=== PATIENT | female | born 1970 | race Caucasian/White ===

== ENCOUNTER → 2020-01-10 13:32 | Outpatient (BNVA) | payer OTHER, SELFPAY | PROVIDERS: PCP Internal Medicine; Referring Provider Internal Medicine; Visit Provider Physician Assistant | DX: R19.7 Diarrhea, unspecified (principal) | CPT/HCPCS: 99202 ==

== ENCOUNTER 2020-01-11 15:13 | Outpatient (REF) | payer OTHER, SELFPAY ==
[2020-01-11 16:02] LABS: MANUAL DIFF FLAG NO
[2020-01-11 16:05] LABS: Basophils Absolute Auto 0.1 X10*3/uL (0.0-0.2); Eosinophils Absolute Auto 0.3 X10*3/uL (0.0-0.4); Eosinophils Percent Auto 5.4 % (0-4); Hematocrit 34.5 % (37-47); Hemoglobin 11.4 g/dl (12.0-16.0); Imm Gran Abs Auto 0.06 X10*3/uL (0.00-0.03); Imm Gran Pct Auto 1.2 % (0.0-0.4); Lymphocytes Absolute Auto 1.7 X10*3/uL (1.2-4.9); Lymphocytes Percent Auto 32.8 % (20-40); Mean Corpuscular Hemoglobin 28.8 pg (27.0-33.0); Mean Corpuscular Volume 87.1 fL (80-98); Mean Platelet Volume 9.3 fL (9.4-12.3); Monocytes Absolute Auto 0.6 X10*3/uL (0.1-1.2); Monocytes Percent Auto 11.9 % (2-11); Neutrophils Absolute Auto 2.4 X10*3/uL (2.0-8.3); Neutrophils Percent Auto 47.7 % (45-73); Platelet Count 333 X10*3/uL (160-400); Red Blood Count 3.96 X10*6/uL (4.20-5.50); Red Cell Distribution Width 12.8 % (11.0-16.0)
[2020-01-11 16:29] LABS: Alanine Aminotransferase 25 U/L (0-31); Albumin Level 3.8 g/dL (3.5-5.0); Alkaline Phosphatase 69 U/L (39-117); Anion Gap 12 (12-20); Anion Gap 14 (12-20); Aspartate Amino Transferase 29 U/L (5-31); Bilirubin Total 0.2 mg/dL (0.0-1.0); Blood Urea Nitrogen 21 mg/dL (9-16); Calcium 9.1 mg/dL (8.4-10.2); Calcium 9.2 mg/dL (8.4-10.2); Carbon Dioxide 24 mmol/L (22-29); Carbon Dioxide 26 mmol/L (22-29); Chloride 104 mmol/L (96-108); Cholesterol 159 mg/dL; Estimated Glomerular Filt Rate 46; Estimated Glomerular Filt Rate 47; Glucose Fasting 81 mg/dL (60-99); Glucose Random 81 mg/dL (60-115); HDL Cholesterol 35 mg/dL; LDL Cholesterol Calculated 83 mg/dl; Potassium 4.9 mmol/l (3.3-5.1); Sodium 137 mmol/L (135-145); Total Protein 7.7 g/dL (6.5-8.0); Triglycerides 207 mg/dL
[2020-01-11 16:40] LABS: Erythrocyte Sedimentation Rate 37 MM/HR (0-20)
[2020-01-11 16:50] LABS: Thyroid Stimulating Hormone 3.78 uIU/mL (0.32-4.0)
[2020-01-12 17:06] LABS: CRP High Sensitivity 5.9 mg/L
[2020-01-12 19:01] LABS: Transglutaminase IgA 1 U/mL
[2020-01-13 10:38] LABS: CDIFF Ag Negative (Negative); CDIFF Internal ctrl Dots and bkg OK (V); CDiff Toxin Negative (Negative)
[2020-01-17 15:56] LABS: Endomysial IgA Antibody Negative (Negative)
[2020-01-25 14:00] LABS: Calprotectin, Fecal 87
== END 2020-01-11 15:14 | disposition home or self-care (01) ==
LOC: HO.LAB 15:13
PROVIDERS: Nurse Practitioner Family; PCP Internal Medicine; Visit Provider Physician Assistant
DX: R10.11 Right upper quadrant pain (principal); K59.09 Other constipation; R19.7 Diarrhea, unspecified
CPT/HCPCS: 36415; 80048; 80053; 80061; 83516; 84443; 85025; 85652; 86141; 86255; 86256

== ENCOUNTER 2020-01-12 17:28 | Outpatient (REF) | payer OTHER, SELFPAY ==
[2020-01-12 18:35] LABS: Leukocytes Stool Qualitative NEGATIVE (NEGATIVE)
[2020-01-19 13:27] LABS: Calprotectin, Fecal 97 mcg/g
== END 2020-01-12 17:29 | disposition home or self-care (01) ==
LOC: HO.LNP 17:28
PROVIDERS: Visit Provider Physician Assistant
DX: R19.7 Diarrhea, unspecified (principal)
CPT/HCPCS: 83993; 87015; 87045; 87046; 87207; 87324; 87329; 87449; 89055

== ENCOUNTER → 2020-03-05 11:39 | Outpatient (BNVA) | payer OTHER, SELFPAY | PROVIDERS: PCP Internal Medicine; Visit Provider Physician Assistant | DX: Z13.89 Encounter for screening for other disorder (principal) | CPT/HCPCS: 99212 ==

== ENCOUNTER 2020-03-27 13:12 | Day surgery (SDC) | payer OTHER, SELFPAY ==
[2020-03-21 15:25] VITALS: BMI 37.9
--- NOTE | 2020-03-26 09:38 | HO.ANESPROP2 ---
Documented by User: Helen Blue 03/26/20 09:43 HPI - Anesthesia Eval Consult details Narrative: 49yo F for Upper Endoscopy and Colonoscopy IVDA - none for 7 months per h&p PMFSH Past Medical History Medical History Anxiety with depression Arthritis Cellulitis GERD (gastroesophageal reflux disease) Hepatitis C History of heroin use Hospital discharge follow-up Neuropathy Smoker Family History Family History Father Cirrhosis Heart problem Mother Cancer Surgical History Surgical History Absence of gallbladder History of ankle surgery History of section Social History Social History (Updated 03/27/20 @ 14:34 by Jayda Trinh) Alcohol intake: former Smoking Status: Current every day smoker Smoked in Last 30 Days: Yes Use of substances other than those prescribed or required for medical reasons: Yes Substance Use Type: Heroin Advance Directives: No Advance Directives Information Provided: No Advance Directives on File: No Current occupational status: disabled Meds Allergies Allergy/AdvReac Type Severity Reaction Status Date / Time No Known Allergies Allergy Verified 03/21/20 15:24 Home Medications Medication Instructions Recorded Confirmed Type dicyclomine 10 mg capsule 10 mg PO QID 12/06/19 03/21/20 History diphenoxylate-atropine 2.5 1 tab PO TID 12/06/19 03/21/20 History mg-0.025 mg tablet hydroxyzine HCl 25 mg tablet 25 mg PO BEDTIME 12/06/19 03/21/20 History aripiprazole 15 mg tablet 15 mg PO DAILY 03/14/20 03/21/20 History prazosin 2 mg capsule 2 mg PO BEDTIME 03/14/20 03/21/20 History methadone 03/27/20 History methadone 40 mg PO DAILY 03/27/20 03/27/20 History Exam Exam Date and Time: March 26, 2020 0938 Height,Weight and Vital Signs: Height 5 ft 3 in Weight 97.069 kg Pertinent Lab Results Pertinent Lab Results: Laboratory Tests 01/11/20 01/11/20 15:40 15:40 WBC 5.0 Hgb 11.4 L Hct 34.5 L Plt Count 333 Sodium 137 Potassium 4.9 Chloride 104 Carbon Dioxide 26 BUN 21 H Creatinine 1.21 Assessment and Plan Assessment Anesthesia Assessment: Chart Reviewed Documented by User: Jayda Trinh 03/27/20 14:37 PMFSH Past Medical History Medical History Anxiety with depression Arthritis Cellulitis GERD (gastroesophageal reflux disease) Hepatitis C History of heroin use Hospital discharge follow-up Neuropathy Smoker Family History Family History Father Cirrhosis Heart problem Mother Cancer Family history of problems with anesthesia: No Surgical History Surgical History Absence of gallbladder History of ankle surgery History of section History of Problems with Anesthesia: No Social History Social History (Updated 03/27/20 @ 14:34 by Jayda Trinh) Alcohol intake: former Smoking Status: Current every day smoker Smoked in Last 30 Days: Yes Use of substances other than those prescribed or required for medical reasons: Yes Substance Use Type: Heroin Advance Directives: No Advance Directives Information Provided: No Advance Directives on File: No Current occupational status: disabled Meds Allergies Allergy/AdvReac Type Severity Reaction Status Date / Time No Known Allergies Allergy Verified 03/21/20 15:24 Home Medications Medication Instructions Recorded Confirmed Type dicyclomine 10 mg capsule 10 mg PO QID 12/06/19 03/21/20 History diphenoxylate-atropine 2.5 1 tab PO TID 12/06/19 03/21/20 History mg-0.025 mg tablet hydroxyzine HCl 25 mg tablet 25 mg PO BEDTIME 12/06/19 03/21/20 History aripiprazole 15 mg tablet 15 mg PO DAILY 03/14/20 03/21/20 History prazosin 2 mg capsule 2 mg PO BEDTIME 03/14/20 03/21/20 History methadone 03/27/20 History methadone 40 mg PO DAILY 03/27/20 03/27/20 History Exam Height,Weight and Vital Signs: Vital Signs Temp Pulse Resp BP Pulse Ox 03/27/20 13:19 97.2 F 67 18 122/67 98 Airway Mallampati Class: II TM Dist: >3cm Neck ROM: Full Denture: Upper and Lower Heart: RRR Lungs: CTAB Assessment and Plan Assessment Anesthesia Assessment: Anesthesia Plan Discussed and Chart Reviewed Final Anesthetic Review NPO: Yes (Jeff smith 11am about 3.5 hours ago) ASA Class: III Final Preanesthetic Review: No Changes in Pt Med Stat, Meds/Allgs Chart Reviewed, Consent Obtained/Reviewed and Anes Risks/Benef Reviewed Patient Risk: Intermediate Procedure Risk: Low Assessment/Block/Sedation in SS: Assess/Block/Sedation-SS Anesthetic Plan Anesthetic Plan: MAC: Disposition: Standard PACU
[2020-03-27 13:19] VITALS: BP 122/67; PULSE 67; RESP 18; TEMP 36.2; O2SAT 98
--- NOTE | 2020-03-27 13:37 | PC.NURSE ---
PT DRANK TEA X3 WITH SUGAR LAST TIME AT 11AM ANESTHESIA AWARE
[2020-03-27] MEDS: Lactated Ringers 1,000 ML 100 ML IVCONT (13:47)
--- NOTE | 2020-03-27 14:24 | MHC.SHP ---
Pre-Procedural Eval Section B Chief Complaint: gerd,diarrhea Relevant Family History (Specify if Yes): No Relevant Social History: Other (specify) (smoker, heroin) Present Medications: see Short Stay Collaborative assessment Medical History: Significant History (Anxiety with depression Arthritis Cellulitis GERD (gastroesophageal reflux disease) Hepatitis C History of heroin use Hospital discharge follow-up Neuropathy Smoker) History of Previous Operations: Relevant previous surgery/procedure and date(s) (choelcystectomy, History of ankle surgery, History of section) Allergies: Allergies Allergy/AdvReac Type Severity Reaction Status Date / Time No Known Allergies Allergy Verified 03/21/20 15:24 Review of Systems Sugical H&P ROS: Negative: Constitution, Cardiovascular, Respiratory, Neurological, Psychiatric, Hem-Onc, Allergic/Immunologic, Gastrointestinal, Genitourinary, Musculoskeletal, Integumentary, Endocrine and Eyes/Ears/Nose/Throat Exam Surgical H&P Exam: Normal: HEENT, Normal: Heart, Normal: Lungs, Normal: Extremities, Normal: Abdomen, Normal: Skin and Normal: Neurological Plan Diagnosis/Plan: Unchanged I have reviewed the history and physical and performed a pertinent physical examination on my patient. No changes have occurred unless specified.
--- NOTE | 2020-03-27 14:25 | PM.OP ---
Brief Operative Note Date of Service: 03/27/20 Pre-op diagnosis: diarrhea Post-op diagnosis: same Procedure: see op note Surgeon: Frank Monsalve MD Anesthesia: MAC Estimated blood loss (mL): 0 Condition: stable Disposition: PACU
--- NOTE | 2020-03-27 14:25 | W.PM.OPN ---
Operative Note Operative Note Date of Service: 03/27/20 Narrative: Operative Information Procedure Description: EGD, Colonoscopy FLEXIBLE TRANSORAL UPPER GASTROINTESTINAL ENDOSCOPY AND COLONOSCOPY PROCEDURE NOTE UPPER ENDOSCOPY Consent: Indications for the procedure and potential complications of bleeding, perforation, reaction to medications and missed diagnosis were discussed with the patient and informed consent was obtained. Instrument: Olympus GIF H 190 J mid size upper endoscope Monitoring: Vital signs and clinical assessment, continuous EKG monitoring, Pulse oximetry, Carbon Dioxide monitoring and blood pressure monitoring were done throughout the procedure. Procedure: The patient was placed in the left lateral decubitis position and pre-procedure medications were administered and a bite block was placed. The endoscope was inserted into the mouth and advanced under direct vision to the third part of duodenum. A careful inspection was made as the upper endoscope was withdrawn including a retroflexed examination of the proximal stomach; Findings and interventions are described below. Findings: Larynx:normal Esophagus: GE junction at 37 cm, diaphragm hiatus at 37 cm, normal mucosa Stomach: Streaky erythema in stomach. Biopsies were obtained. Grade 2 flap valve on retroflexed examination of the cardia. Duodenum: bulbar duodenitis, bx taken Intervention: Biopsies as noted above COLONOSCOPY Instrument: Olympus variable stiffness pediatric scope 190L Colonoscopy Monitoring: Vital signs and clinical assessment, continuous EKG monitoring, Pulse oximetry, Carbon Dioxide monitoring and blood pressure monitoring were done throughout the procedure. Colon withdrawal time was 10 minutes. Procedure: The patient was placed in the left lateral decubitis position and pre-procedure medications were administered. After a digital rectal examination of the ano-rectum, the video colonoscope was inserted into the rectum and advanced through the colon to the cecum/TI. The colonoscope was slowly withdrawn in a retrograde panoramic fashion and the colon mucosa was carefully examined including a retroflexed view of the rectum. Findings and interventions are described below. Procedure Difficulty:easy Findings: random colon bx taken Terminal Ileum-normal, bx taken Cecum:normal Ascending Colon: normal Transverse Colon -10 mm sessile polyp removed with cold snare Descending Colon:normal Sigmoid Colon: normal Rectum: Retroflexion with small internal hemorrhoids, grade I Anorectum - normal Colon preparation: [place] Bowel Preparation Scale Right colon; 2 Transverse colon: 1 Left colon; 1 (0 = Unprepared colon segment with mucosa not seen due to solid stool that cannot be cleared. 1 = Portion of mucosa of the colon segment seen, but other areas of the colon segment not well seen due to staining, residual stool and/or opaque liquid. 2 = Minor amount of residual staining, small fragments of stool and/or opaque liquid, but mucosa of colon segment seen well. 3 = Entire mucosa of colon segment seen well with no residual staining, small fragments of stool or opaque liquid) Impression and Post Procedure Diagnosis: Endoscopy Findings: gastritis Colonoscopy Findings: internal hemorrhoids polyp Plan: Await Pathology results Repeat Colonoscopy in 1 year due to prep on left side or earlier if clinically indicated High fiber diet leaflet avoid straining at stool, epsom salts and sitz bath, anusol supps or cream prn Above findings were reviewed with the patient and relevant handouts were provided if indicated.
[2020-03-27 15:40] VITALS: BP 129/88; PULSE 88; RESP 16; TEMP 36.1; O2SAT 99
[2020-03-27 15:55] VITALS: BP 134/98; PULSE 88; RESP 16; TEMP 36.6; O2SAT 98
== END 2020-03-27 16:21 | disposition home or self-care (01) ==
PROVIDERS: PCP Internal Medicine; Visit Provider Internal Medicine Gastroenterology
PROC: (CPT 45385; principal; 2020-03-27 14:40)
DX: R19.7 Diarrhea, unspecified (principal); R19.4 Change in bowel habit; D12.3 Benign neoplasm of transverse colon; K64.0 First degree hemorrhoids; D64.9 Anemia, unspecified; K21.9 Gastro-esophageal reflux disease without esophagitis; K29.50 Unspecified chronic gastritis without bleeding; K29.80 Duodenitis without bleeding; K44.9 Diaphragmatic hernia without obstruction or gangrene; R79.82 Elevated C-reactive protein (CRP); G62.9 Polyneuropathy, unspecified; F32.9 Major depressive disorder, single episode, unspecified; F11.10 Opioid abuse, uncomplicated; F17.200 Nicotine dependence, unspecified, uncomplicated; Z90.49 Acquired absence of other specified parts of digestive tract; Z79.899 Other long term (current) drug therapy
CPT/HCPCS: 45385; 45380; 43239; 88305; 88342; J3010

== ENCOUNTER → 2020-04-17 12:48 | Outpatient (BNVA) | payer OTHER, SELFPAY | PROVIDERS: PCP Internal Medicine; Visit Provider Physician Assistant ==

== ENCOUNTER → 2020-06-06 13:21 | Outpatient (BNVA) | payer OTHER, SELFPAY | PROVIDERS: Visit Provider Physician Assistant ==

== ENCOUNTER → 2020-07-08 11:37 | Outpatient (BNVA) | payer OTHER, SELFPAY | PROVIDERS: Visit Provider Physician Assistant ==

== ENCOUNTER → 2020-07-18 12:52 | Outpatient (BNVA) | payer OTHER, SELFPAY | PROVIDERS: PCP Nurse Practitioner Family; Visit Provider Student in an Organized Health Care Education/Training Program | DX: M25.50 Pain in unspecified joint (principal) | CPT/HCPCS: 99202 ==

== ENCOUNTER 2020-07-24 15:08 | Outpatient (REF) | payer OTHER, SELFPAY ==
--- NOTE | ~2020-07-24 | XR_ITS ---
EXAMINATION: XR KNEE, BILATERAL CLINICAL INFORMATION: Bilateral knee pain. COMPARISON: None TECHNIQUE: 3 views each knee. FINDINGS: RIGHT KNEE: There is mild narrowing of the lateral compartment with some tibiolateral osteophytes. The patellofemoral joint is unremarkable. No chondrocalcinosis is seen. The joint effusion is not present. LEFT KNEE: There is narrowing of the lateral compartment with distal femoral condyle and lateral tibial plateau osteophytes. No chondrocalcinosis is seen. Some mild degenerative changes present in the patellofemoral joint with some distal femoral irregularity and osteophytes. No joint effusion seen. XR/XR knee RT 3V IMPRESSION: Degenerative changes present in both knees predominantly involving the lateral compartment on the right and the lateral and patellofemoral compartments on the left.
--- NOTE | ~2020-07-24 | XR_ITS ---
EXAMINATION: XR KNEE, BILATERAL CLINICAL INFORMATION: Bilateral knee pain. COMPARISON: None TECHNIQUE: 3 views each knee. FINDINGS: RIGHT KNEE: There is mild narrowing of the lateral compartment with some tibiolateral osteophytes. The patellofemoral joint is unremarkable. No chondrocalcinosis is seen. The joint effusion is not present. LEFT KNEE: There is narrowing of the lateral compartment with distal femoral condyle and lateral tibial plateau osteophytes. No chondrocalcinosis is seen. Some mild degenerative changes present in the patellofemoral joint with some distal femoral irregularity and osteophytes. No joint effusion seen. XR/XR knee LT 3V IMPRESSION: Degenerative changes present in both knees predominantly involving the lateral compartment on the right and the lateral and patellofemoral compartments on the left.
[2020-07-24 15:54] LABS: MANUAL DIFF FLAG NO
[2020-07-24 16:03] LABS: Basophils Percent Auto 0.6 % (0-2); Eosinophils Absolute Auto 0.1 X10*3/uL (0.0-0.4); Eosinophils Percent Auto 2.1 % (0-4); Hematocrit 38.2 % (37-47); Hemoglobin 12.4 g/dl (12.0-16.0); Imm Gran Abs Auto 0.02 X10*3/uL (0.00-0.03); Imm Gran Pct Auto 0.4 % (0.0-0.4); Lymphocytes Absolute Auto 1.3 X10*3/uL (1.2-4.9); Mean Corpuscular HGB Conc 32.5 g/dl (31.0-35.0); Mean Corpuscular Volume 89.5 fL (80-98); Mean Platelet Volume 9.8 fL (9.4-12.3); Monocytes Absolute Auto 0.5 X10*3/uL (0.1-1.2); Neutrophils Absolute Auto 3.4 X10*3/uL (2.0-8.3); Neutrophils Percent Auto 62.9 % (45-73); Platelet Count 195 X10*3/uL (160-400); Red Blood Count 4.27 X10*6/uL (4.20-5.50); Red Cell Distribution Width 13.5 % (11.0-16.0); White Blood Count 5.3 X10*3/uL (4.8-10.8)
[2020-07-24 16:22] LABS: Rheumatoid Factor < 15.0 IU/mL (<15.0)
[2020-07-24 16:24] LABS: Alanine Aminotransferase 21 U/L (0-31); Albumin Level 3.7 g/dL (3.5-5.0); Alkaline Phosphatase 87 U/L (39-117); Anion Gap 12 (12-20); Aspartate Amino Transferase 24 U/L (5-31); Bilirubin Total < 0.2 mg/dL (0.0-1.0); Blood Urea Nitrogen 14 mg/dL (9-16); C Reactive Protein 0.49 mg/dL (< or = 0.50); Calcium 9.5 mg/dL (8.4-10.2); Carbon Dioxide 27 mmol/L (22-29); Chloride 102 mmol/L (96-108); Estimated Glomerular Filt Rate > 60; Glucose Random 87 mg/dL (60-115); Potassium 5.1 mmol/L (3.3-5.1); Sodium 136 mmol/L (135-145); Total Protein 7.2 g/dL (6.5-8.0)
[2020-07-24 16:40] LABS: Thyroid Stimulating Hormone 0.76 uIU/mL (0.32-4.0)
[2020-07-24 16:44] LABS: Erythrocyte Sedimentation Rate 22 MM/HR (0-20)
[2020-07-25 08:57] LABS: Lyme Abs Screen <0.90 index
[2020-07-25 17:26] LABS: Cyclic Citrullinated Peptide <16 UNITS
[2020-07-28 13:52] LABS: Vitamin D 25-OH, D2 11 ng/mL; Vitamin D 25-OH, D3 20 ng/mL; Vitamin D 25-OH, Total 31 ng/mL (30-100)
== END 2020-07-24 15:09 | disposition home or self-care (01) ==
LOC: HO.LAB 15:08
PROVIDERS: PCP Internal Medicine; Visit Provider Student in an Organized Health Care Education/Training Program
DX: M25.50 Pain in unspecified joint (principal)
CPT/HCPCS: 36415; 73562; 80053; 82306; 84443; 85025; 85652; 86140; 86200; 86431; 86617; 86618

== ENCOUNTER → 2020-08-08 16:02 | Outpatient (BNVA) | payer OTHER, SELFPAY | PROVIDERS: PCP Internal Medicine; Visit Provider Student in an Organized Health Care Education/Training Program | DX: M25.50 Pain in unspecified joint (principal) | CPT/HCPCS: 99212 ==